=== PATIENT | male | born 2000 | race Caucasian/White ===

== ENCOUNTER 2023-06-20 21:33 | Emergency (ER) | payer BC ==
[~2023-06-20] VITALS: Ht 185.4 cm; Wt 72.7 kg
[2023-06-20 21:34] VITALS: TEMP 97.7
[2023-06-20] MEDS ORDERED: NS 1,000 ML IV ONE ×2 (21:45)
[2023-06-20 22:10] LABS: BASO # 0.1 K/mm3 (0.0-0.2); BASO % 0.6 % (0.0-2.0); EOS # 0.1 K/mm3 (0.0-0.7); EOS % 1.3 % (0.0-4.0); GRAN % 53.2 % (42.2-75.2); HEMATOCRIT 43.2 % (42.0-52.0); HEMOGLOBIN 15.3 g/dl (13.5-18.0); LYMPH # 3.7 K/mm3 (1.2-3.4); LYMPH % 39.2 % (20.0-51.0); MEAN CELL VOLUME 87 fl (80.0-100.0); MEAN CORPUSCULAR HEMOGLOBIN 31 pg (27-31); MEAN CORPUSCULAR HGB CONC 35 g/dl (33.0-37.0); MEAN PLATELET VOLUME 11.1 fl (7.4-10.4); MONO # 0.5 K/mm3 (0.1-0.6); MONO % 5.1 % (1.7-9.3); PLATELET COUNT 307 K/mm3 (130-400); RED BLOOD COUNT 4.98 M/mm3 (4.20-5.60); REDCELL DISTRIBUTION WIDTH-CV 11.9 % (11.5-14.5)
[2023-06-20 22:29] LABS: ALBUMIN 4.4 gm/dL (3.5-5.0); BILIRUBIN,TOTAL 0.3 mg/dL (0.2-1.2); CREATININE, serum 1.27 mg/dL (0.72-1.25); POTASSIUM 3.7 mmol/L (3.5-4.5); TOTAL PROTEIN 7.2 gm/dL (6.2-8.1)
[2023-06-20 22:49] LABS: PROLACTIN 63.4 ng/mL (3.46-19.40)
[2023-06-20] MEDS ORDERED: KEPPRA 500MG500 MG PO (23:41)
[2023-06-20] MEDS ORDERED: levETIRAcetam 100 ML IV ONE (23:45)
[2023-06-21 00:52] VITALS: BP 125/91; PULSE 88
== END 2023-06-21 00:52 | disposition home or self-care (01) ==
LOC: COL.ER 21:33
PROVIDERS: Personal Emergency Response Attendant
DX: R55 Syncope and collapse (principal); E86.0 Dehydration; M25.511 Pain in right shoulder; M25.512 Pain in left shoulder; E22.1 Hyperprolactinemia
CPT/HCPCS: J1953; J7030